=== PATIENT | female | born 1980 | race Caucasian/White ===

== ENCOUNTER 2020-10-29 11:54 | Emergency (ER) | payer OTHER ==
[2020-10-29] MEDS ORDERED: Zofran 4 MG/2 ML VIAL IV ONE (12:06)
[2020-10-29] MEDS ORDERED: Sodium Chloride 0.9% 1000 ML 1,000 ML IV STA (12:06)
--- NOTE | 2020-10-29 12:14 | ERPHSYRPT ---
- History of Present Illness Time Seen by Provider: 10/29/20 12:09 Historian: patient Exam Limitations: no limitations Physician History: Is a 40-year-old white female who presents with a complaint of nausea and vomiting chills and sweats for the entire weekend. 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 She has also had some diarrhea she has mild abdominal tenderness but does not complain of a lot of pain. She has had her [place] vaccine. She does complain of some shortness of breath.some vertigo Timing/Duration: day(s) (3) Quality: fullness, pressure Abdominal Pain Onset Location: generalized abdomen Pain Radiation: no radiation Severity of Pain-Max: mild Severity of Pain-Current: mild Modifying Factors: Improves With: eating, vomiting Associated Symptoms: diaphoresis, diarrhea, fever/chills, nausea Previous symptoms: no prior history Allergies/Adverse Reactions: lactase [From [employer]] Allergy (Intermediate, Verified 10/29/20 12:10) abdominal pain codeine Allergy (Verified 10/29/20 12:10) Rash morphine Adverse Reaction (Intermediate, Verified 10/29/20 12:11) itch - Review of Systems Constitutional: Fever, Chills Eyes: No Symptoms Ears, Nose, & Throat: No Symptoms Respiratory: Dyspnea, Dyspnea on Exertion (SANCHEZ), No Cough Cardiac: No Chest Pain, No Edema, No Syncope Abdominal/Gastrointestinal: Abdominal Pain, Nausea, Vomiting, Diarrhea Genitourinary Symptoms: No Dysuria Musculoskeletal: No Back Pain, No Neck Pain Skin: No Rash Neurological: No Dizziness, No Focal Weakness, No Sensory Changes Psychological: No Symptoms Endocrine: No Symptoms All Other Systems: Reviewed and Negative - Female History Hx Now: No - Nursing Vital Signs Nursing Vital Signs: Initial Vital Signs Temperature 97.8 F 10/29/20 12:02 Pulse Rate 85 10/29/20 12:02 Respiratory Rate 22 10/29/20 12:02 Blood Pressure 146/73 10/29/20 12:02 O2 Sat by Pulse Oximetry 99 10/29/20 12:02 Pain Scale Pain Intensity 4 - Physical Exam General Appearance: mild distress, alert Eye Exam: PERRL/EOMI, eyes nml inspection, other (nystagmus with change in head position) Ears, Nose, Throat Exam: normal ENT inspection, pharynx normal, dry mucous membranes Neck Exam: normal inspection, non-tender, supple, full range of motion Respiratory Exam: normal breath sounds, lungs clear, No respiratory distress Cardiovascular Exam: regular rate/rhythm, normal heart sounds Gastrointestinal/Abdomen Exam: soft, tenderness, No mass, No guarding, No rebound Pelvic Exam: not done Rectal Exam: deferred Back Exam: normal inspection, normal range of motion, No CVA tenderness, No vertebral tenderness Extremity Exam: normal inspection, normal range of motion, pelvis stable Neurologic Exam: alert, oriented x 3, cooperative, normal mood/affect, nml cerebellar function, sensation nml, No motor deficits Skin Exam: normal color, warm, dry SpO2 Interpretation: normal O2 Delivery: Room Air - Course Nursing assessment & vital signs reviewed: Yes Ordered Tests: Active Orders 24 hr Category Date Time Status IV Insertion STAT Care 10/29/20 12:06 Active Orthostatic Vital Signs STAT Care 10/29/20 12:06 Active ABDOMEN AND PELVIS W CONTRAST [CT] Stat Exams 10/29/20 12:07 Completed AMYLASE Stat Lab 10/29/20 12:19 Completed CBC W DIFF Stat Lab 10/29/20 12:19 Completed CMP Stat Lab 10/29/20 12:19 Completed CULTURE,URINE Stat Lab 10/29/20 12:37 Received LIPASE Stat Lab 10/29/20 12:19 Completed Lactic Acid Stat Lab 10/29/20 12:06 Completed OCCULT BLOOD, EMESIS Stat Lab 10/29/20 12:37 Ordered UA W/RFX UR CULTURE Stat Lab 10/29/20 12:37 Completed Medication Summary Discontinued Medications Generic Name Dose Route Start Last Admin Trade Name Jackie PRN Reason Stop Dose Admin Sodium Chloride 1,000 mls @ 999 mls/hr 10/29/20 12:06 10/29/20 13:29 Sodium Chloride 0.9% 1000 Ml IV 10/29/20 13:06 Infused .Q1H1M STA Infusion Sodium Chloride Confirm 10/29/20 12:22 Sodium Chloride 0.9% 1000 Ml Administered 10/29/20 12:23 Dose 1,000 mls @ ud .ROUTE .STK-MED ONE Ceftriaxone Sodium/Dextrose 1 g in 50 mls @ 100 mls/hr 10/29/20 14:58 10/29/20 15:08 Rocephin 1 Gm-D5w 50 Ml Bag IV 10/29/20 15:27 100 mls/hr STAT STA 100 mls/hr Administration Ceftriaxone Sodium/Dextrose Confirm 10/29/20 15:07 Rocephin 1 Gm-D5w 50 Ml Bag Administered 10/29/20 15:08 Dose 1 g in 50 mls @ ud IV .STK-MED ONE Metoclopramide HCl 10 mg 10/29/20 14:35 10/29/20 14:39 Reglan 10 Mg/2 Ml IV 10/29/20 14:36 10 mg STAT ONE Administration Metoclopramide HCl Confirm 10/29/20 14:37 Reglan 10 Mg/2 Ml Administered 10/29/20 14:38 Dose 10 mg .ROUTE .STK-MED ONE Ondansetron HCl 4 mg 10/29/20 12:06 10/29/20 12:23 Zofran 4 Mg/2 Ml Vial IV 10/29/20 12:07 4 mg STAT ONE Administration Ondansetron HCl Confirm 10/29/20 12:22 Zofran 4 Mg/2 Ml Vial Administered 10/29/20 12:23 Dose 4 mg .ROUTE .STK-MED ONE Lab/Rad Data: Laboratory Result Diagrams 10/29/20 12:19 10/29/20 12:19 Laboratory Results 10/29/20 10/29/20 10/29/20 Range/Units 12:37 12:19 12:19 WBC 10.8 H (4.0-10.5) K/mm3 RBC 4.87 (4.1-5.4) M/mm3 Hgb 14.4 (12.0-16.0) gm/dl Hct 45.3 (35-47) % MCV 93.0 (78-100) fl MCH 29.6 (26-32) pg MCHC 31.8 L (32-36) g/dl RDW 13.8 (11.5-14.0) % Plt Count 236 (150-450) K/mm3 MPV 10.8 (7.5-11.0) fl Gran % 78.3 H (36.0-66.0) % Eos # (Auto) 0.03 (0-0.5) Absolute Lymphs (auto) 1.61 (1.0-4.6) Absolute Monos (auto) 0.67 (0.0-1.3) Lymphocytes % 14.9 L (24.0-44.0) % Monocytes % 6.2 (0.0-12.0) % Eosinophils % 0.3 (0.00-5.0) % Basophils % 0.3 (0.0-0.4) % Absolute Granulocytes 8.43 H (1.4-6.9) Basophils # 0.03 (0-0.4) Sodium 139 (137-145) mmol/L Potassium 3.4 L (3.5-5.1) mmol/L Chloride 103 (98-107) mmol/L Carbon Dioxide 22 (22-30) mmol/L Anion Gap 17.8 H (5-15) MEQ/L BUN 10 (7-17) mg/dL Creatinine 0.89 (0.52-1.04) mg/dL Estimated GFR > 60.0 ML/MIN Glucose 110 H (74-106) mg/dL Lactic Acid (0.4-2.0) Calcium 10.1 (8.4-10.2) mg/dL Total Bilirubin 0.80 (0.2-1.3) mg/dL AST 39 H (14-36) U/L ALT 39 H (0-35) U/L Alkaline Phosphatase 86 (38-126) U/L Serum Total Protein 8.4 H (6.3-8.2) g/dL Albumin 5.0 (3.5-5.0) g/dL Amylase 76 (30-110) U/L Lipase 173 (23-300) U/L Urine Color YELLOW (YELLOW) Urine Appearance CLOUDY (CLEAR) Urine pH 6.0 (5-6) Ur Specific [place] 1.016 (1.005-1.025) Urine Protein 30 (Negative) Urine Ketones TRACE (NEGATIVE) Urine Blood NEGATIVE (0-5) [place] Urine Nitrite NEGATIVE (NEGATIVE) Urine Bilirubin NEGATIVE (NEGATIVE) Urine Urobilinogen 2 (0-1) mg/dL Ur Leukocyte Esterase TRACE (NEGATIVE) Urine WBC (Auto) 6-10 (0-5) /HPF Urine RBC (Auto) 3-5 (0-2) /HPF U Epithel Cells (Auto) RARE (FEW) /HPF Urine Bacteria (Auto) MANY (NEGATIVE) /HPF Urine Mucus (Auto) SLIGHT (NEGATIVE) /HPF Urine Yeast (Budding) Rare (NEGATIVE) /HPF Urine Culture Reflexed YES (NO) Urine Glucose NEGATIVE (NEGATIVE) mg/dL 10/29/20 Range/Units 12:06 WBC (4.0-10.5) K/mm3 RBC (4.1-5.4) M/mm3 Hgb (12.0-16.0) gm/dl Hct (35-47) % MCV (78-100) fl MCH (26-32) pg MCHC (32-36) g/dl RDW (11.5-14.0) % Plt Count (150-450) K/mm3 MPV (7.5-11.0) fl Gran % (36.0-66.0) % Eos # (Auto) (0-0.5) Absolute Lymphs (auto) (1.0-4.6) Absolute Monos (auto) (0.0-1.3) Lymphocytes % (24.0-44.0) % Monocytes % (0.0-12.0) % Eosinophils % (0.00-5.0) % Basophils % (0.0-0.4) % Absolute Granulocytes (1.4-6.9) Basophils # (0-0.4) Sodium (137-145) mmol/L Potassium (3.5-5.1) mmol/L Chloride (98-107) mmol/L Carbon Dioxide (22-30) mmol/L Anion Gap (5-15) MEQ/L BUN (7-17) mg/dL Creatinine (0.52-1.04) mg/dL Estimated GFR ML/MIN Glucose (74-106) mg/dL Lactic Acid 1.3 (0.4-2.0) Calcium (8.4-10.2) mg/dL Total Bilirubin (0.2-1.3) mg/dL AST (14-36) U/L ALT (0-35) U/L Alkaline Phosphatase (38-126) U/L Serum Total Protein (6.3-8.2) g/dL Albumin (3.5-5.0) g/dL Amylase (30-110) U/L Lipase (23-300) U/L Urine Color (YELLOW) Urine Appearance (CLEAR) Urine pH (5-6) Ur Specific [place] (1.005-1.025) Urine Protein (Negative) Urine Ketones (NEGATIVE) Urine Blood (0-5) [place] Urine Nitrite (NEGATIVE) Urine Bilirubin (NEGATIVE) Urine Urobilinogen (0-1) mg/dL Ur Leukocyte Esterase (NEGATIVE) Urine WBC (Auto) (0-5) /HPF Urine RBC (Auto) (0-2) /HPF U Epithel Cells (Auto) (FEW) /HPF Urine Bacteria (Auto) (NEGATIVE) /HPF Urine Mucus (Auto) (NEGATIVE) /HPF Urine Yeast (Budding) (NEGATIVE) /HPF Urine Culture Reflexed (NO) Urine Glucose (NEGATIVE) mg/dL - Progress Progress: improved - Departure Departure Disposition: Home Clinical Impression: UTI (urinary tract infection), Vertigo Condition: Stable Critical Care Time: No Prescriptions: Cephalexin Mh 500 mg [Keflex 500 mg] 500 mg PO TID #21 capsule Metoclopramide HCl 10 mg [Reglan 10 MG] 10 mg PO Q6H 3 Days #12 tablet Diazepam 5 mg [Valium 5 MG] 5 mg PO TID PRN 3 Days #10 tablet PRN Reason: Dizziness
[2020-10-29] MEDS ORDERED: Sodium Chloride 0.9% 1000 ML 1,000 ML ONE (12:22)
[2020-10-29] MEDS ORDERED: Zofran 4 MG/2 ML VIAL ONE (12:22)
[2020-10-29 12:25] LABS: Absolute Neutrophil Ct (ANC) 8.43 (1.4-6.9); BASOPHIL % 0.3 % (0.0-0.4); Basophil (Absolute #) 0.03 (0-0.4); Eosinophil % 0.3 % (0.00-5.0); Eosinophil (Absolute #) 0.03 (0-0.5); Hematocrit 45.3 % (35-47); Hemoglobin 14.4 gm/dl (12.0-16.0); Lymphocyte (Absolute #) 1.61 (1.0-4.6); Lymphocytes % 14.9 % (24.0-44.0); Mean Corpuscular Hemoglobin 29.6 pg (26-32); Mean Corpuscular Hgb Concent. 31.8 g/dl (32-36); Mean Platelet Volume 10.8 fl (7.5-11.0); Monocyte (Absolute #) 0.67 (0.0-1.3); Monocytes % 6.2 % (0.0-12.0); Neutrophil % 78.3 % (36.0-66.0); Platelet Count 236 K/mm3 (150-450); Red Blood Count 4.87 M/mm3 (4.1-5.4); Red Cell Distribution Width 13.8 % (11.5-14.0); White Blood Count 10.8 K/mm3 (4.0-10.5)
[2020-10-29 12:48] LABS: ALKALINE PHOSPHATASE 86 U/L (38-126); AMYLASE 76 U/L (30-110); ANION GAP 17.8 MEQ/L (5-15); BLOOD UREA NITROGEN 10 mg/dL (7-17); CHLORIDE 103 mmol/L (98-107); Calcium 10.1 mg/dL (8.4-10.2); Carbon Dioxide 22 mmol/L (22-30); Creatinine 1 0.89 mg/dL (0.52-1.04); EST GLOMERULAR FILTRATION RATE > 60.0 ML/MIN; Glucose 110 mg/dL (74-106); LIPASE 173 U/L (23-300); Potassium 3.4 mmol/L (3.5-5.1); SGOT/AST 39 U/L (14-36); SGPT/ALT 39 U/L (0-35); SODIUM 139 mmol/L (137-145); Total Protein 8.4 g/dL (6.3-8.2)
[2020-10-29 13:13] LABS: Appearance CLOUDY (CLEAR); Bacteria MANY /HPF (NEGATIVE); Bilirubin NEGATIVE (NEGATIVE); Blood NEGATIVE Ery/ul (0-5); Epithelial Cells RARE /HPF (FEW); Glucose NEGATIVE (NEGATIVE); Ketones TRACE (NEGATIVE); Leukocyte Esterase TRACE (NEGATIVE); Mucus SLIGHT /HPF (NEGATIVE); Nitrite NEGATIVE (NEGATIVE); Protein,Urine Dip 30 (Negative); Specific Gravity 1.016 (1.005-1.025); Urobilinogen 2 mg/dL (0-1)
[2020-10-29 13:17] LABS: Budding Yeast Rare /HPF (NEGATIVE)
--- NOTE | 2020-10-29 13:56 | XRAY ---
Indication: Abdomen tenderness, nausea, and vomiting. Multiple contiguous axial images obtained through the abdomen and pelvis using 80 cc Isovue 370 contrast. Comparison: None Lung bases are clear. Heart is not enlarged. Incidental partially visualized bilateral breast implants. Noncontrasted stomach and bowel loops appear nonobstructed. Normal appendix. Minimal descending and sigmoid diverticulosis. No free fluid/air. Remaining liver, gallbladder, pancreas, spleen, adrenal glands, kidneys, ureters, bladder, uterus, and aorta are unremarkable. No pathologic retroperitoneal lymphadenopathy. Osseous structures intact. No ventral or inguinal hernias. Impression: 1. Minimal colonic diverticulosis. 2. Remaining CT abdomen/pelvis with contrast exam is negative.
[2020-10-29] MEDS ORDERED: Reglan 10 MG/2 ML IV ONE (14:35)
[2020-10-29] MEDS ORDERED: Reglan 10 MG/2 ML ONE (14:37)
[2020-10-29] MEDS ORDERED: ROCEPHIN 1 Gm-D5w 50 ml Bag** 1 G/50 ML IVPB IV STA (14:58)
[2020-10-29] MEDS ORDERED: ROCEPHIN 1 Gm-D5w 50 ml Bag** 1 G/50 ML IVPB IV ONE (15:07)
[2020-10-29 15:12] VITALS: BP 131/74; PULSE 68; O2SAT 99
== END 2020-10-29 15:52 | disposition home or self-care (01) ==
LOC: ED 11:54
DX: N39.0 Urinary tract infection, site not specified (principal); R42 Dizziness and giddiness
CPT/HCPCS: 36000; 36415; 74177; 80053; 81001; 82150; 83605; 83690; 85025; 87045; 87046; 87077; 87086; 87186; 87328; 87329; 96365; 96374; 96375; 99284; J0696; J2405